=== PATIENT | female | born 1960 | race Caucasian/White ===

== ENCOUNTER 2022-08-22 14:46 | Emergency (ER) | payer MEDICAID, MEDICARE, OTHER, SELFPAY ==
[2022-08-22] MEDS ORDERED: Acetaminophen 500 MG Tab PO ONE (17:09)
[2022-08-22] MEDS ORDERED: busPIRone 15 MG Tab PO ONE (17:10)
[2022-08-22] MEDS ORDERED: traMADol 50 MG Tab PO ONE (17:10)
[2022-08-22] MEDS ORDERED: hydrOXYzine HCl 25 MG Tab PO ONE (17:10)
[2022-08-22] MEDS ORDERED: Gabapentin 300 MG Cap PO ONE (17:12)
== END 2022-08-22 17:40 | disposition home or self-care (01) ==
LOC: DL.ED 14:46 → MERGE 14:46 → DL.ED 17:40
DX: F41.9 Anxiety disorder, unspecified (principal); G89.4 Chronic pain syndrome; K21.9 Gastro-esophageal reflux disease without esophagitis; J44.9 Chronic obstructive pulmonary disease, unspecified; Z88.8 Allergy status to other drugs, medicaments and biological substances; Z88.2 Allergy status to sulfonamides; Z88.5 Allergy status to narcotic agent; Z79.899 Other long term (current) drug therapy; Z79.01 Long term (current) use of anticoagulants
CPT/HCPCS: 99283

== ENCOUNTER 2022-08-28 19:00 | Emergency (ER) | payer MEDICARE ==
[2022-08-28] MEDS ORDERED: traMADol 50 MG Tab PO ONE (19:23)
[2022-08-28] MEDS ORDERED: hydrOXYzine HCl 25 MG Tab PO ONE (19:23)
[2022-08-28] MEDS ORDERED: busPIRone 15 MG Tab PO ONE (19:23)
[2022-08-28] MEDS ORDERED: hydrOXYzine HCl 25 MG Tab ONE (19:33)
== END 2022-08-28 19:53 | disposition left against medical advice (07) ==
LOC: DL.ED 19:00
DX: F41.9 Anxiety disorder, unspecified (principal); G89.29 Other chronic pain; M54.50 Low back pain, unspecified; J44.9 Chronic obstructive pulmonary disease, unspecified; Z72.0 Tobacco use; Z86.711 Personal history of pulmonary embolism; Z88.2 Allergy status to sulfonamides; Z88.8 Allergy status to other drugs, medicaments and biological substances; Z88.1 Allergy status to other antibiotic agents; Z88.5 Allergy status to narcotic agent; Z79.899 Other long term (current) drug therapy; Z79.01 Long term (current) use of anticoagulants
CPT/HCPCS: 99283; A9270

== ENCOUNTER 2022-09-29 07:31 | Emergency (ER) | payer MEDICARE ==
[2022-09-29 07:45] VITALS: BP 118/86; PULSE 82
== END 2022-09-29 07:57 | disposition home or self-care (01) ==
LOC: DL.ED 07:31
DX: H10.021 Other mucopurulent conjunctivitis, right eye (principal); J44.9 Chronic obstructive pulmonary disease, unspecified; Z86.711 Personal history of pulmonary embolism; Z79.899 Other long term (current) drug therapy; Z88.8 Allergy status to other drugs, medicaments and biological substances; Z88.1 Allergy status to other antibiotic agents; Z88.5 Allergy status to narcotic agent; Z88.2 Allergy status to sulfonamides
CPT/HCPCS: 99282

== ENCOUNTER 2022-10-10 17:45 | Emergency (ER) | payer MEDICARE ==
[2022-10-10 17:58] VITALS: BP 125/61; PULSE 82
[2022-10-10 18:49] LABS: ANION GAP 11.7 mEq/L (7-13); CHLORIDE,CL 106 mmol/L (98-107); SODIUM,NA 146 mmol/L (136-145)
[2022-10-10 18:50] LABS: ESTIMATED GFR 83 mL/min (>=60)
[2022-10-10] MEDS ORDERED: traMADol 50 MG Tab PO ONE (19:29)
[2022-10-10 19:46] LABS: AMPHETAMINES,URINE NEGATIVE (NEGATIVE); BARBITURATES,URINE NEGATIVE (NEGATIVE); BENZODIAZEPINE,URINE NEGATIVE (NEGATIVE); MDMA (ECSTASY), URINE NEGATIVE (NEGATIVE); METHADONE,URINE NEGATIVE (NEGATIVE); METHAMPHETAMINES,URINE NEGATIVE (NEGATIVE); OPIATES,URINE NEGATIVE (NEGATIVE); OXYCODONE,URINE NEGATIVE (NEGATIVE); PHENCYCLIDINE,URINE NEGATIVE (NEGATIVE); TCA,URINE NEGATIVE (NEGATIVE)
== END 2022-10-10 20:08 | disposition other institution (70) ==
LOC: DL.ED 17:45
DX: G44.319 Acute post-traumatic headache, not intractable (principal); M11.262 Other chondrocalcinosis, left knee; I51.7 Cardiomegaly; J44.9 Chronic obstructive pulmonary disease, unspecified; Z86.711 Personal history of pulmonary embolism; Z79.01 Long term (current) use of anticoagulants; Z79.51 Long term (current) use of inhaled steroids; Z88.2 Allergy status to sulfonamides; Z88.5 Allergy status to narcotic agent; Z88.8 Allergy status to other drugs, medicaments and biological substances; Z88.6 Allergy status to analgesic agent
CPT/HCPCS: 36415; 70450; 71045; 72125; 72170; 73562-LT; 80053; 80305-QW; 80307; 81003; 85025; 99284; 99285; A9270-GY

== ENCOUNTER 2022-10-12 14:55 | Emergency (ER) | payer MEDICARE ==
[2022-10-12 15:22] VITALS: BP 137/82; PULSE 92
[2022-10-12] MEDS ORDERED: Sodium Chloride 0.9% 10 ML Syringe FLUSH PRN (15:26)
[2022-10-12] MEDS ORDERED: diphenhydrAMINE 50 MG/ML SDV IVPUSH ONE (16:12)
[2022-10-12 16:14] LABS: ANION GAP 11.6 mEq/L (7-13)
[2022-10-12 16:52] LABS: CORONAVIRUS COVID-19 NAA NEGATIVE (NEGATIVE); RESPIRATORY SYNCYTIAL VIR NAA NEGATIVE (NEGATIVE)
== END 2022-10-12 16:46 | disposition home or self-care (01) ==
LOC: DL.ED 14:55
DX: R07.9 Chest pain, unspecified (principal); J44.9 Chronic obstructive pulmonary disease, unspecified; Z95.1 Presence of aortocoronary bypass graft; Z88.5 Allergy status to narcotic agent; Z88.8 Allergy status to other drugs, medicaments and biological substances; Z88.2 Allergy status to sulfonamides; Z79.899 Other long term (current) drug therapy; Z79.01 Long term (current) use of anticoagulants; Z20.822 Contact with and (suspected) exposure to COVID-19
CPT/HCPCS: 0241U; 36415; 71045; 80053; 81001; 83605; 83735; 84484; 85025; 86140; 87040; 87086; 87088; 87186; 93005; 93010; 96374; 99284; 99285; J1200; J3490

== ENCOUNTER 2022-10-14 11:09 | Emergency (ER) | payer MEDICARE ==
[2022-10-14] MEDS ORDERED: Ketorolac 30 MG/ML SDV IM ONE (11:32)
[2022-10-14 11:55] VITALS: BP 108/57; PULSE 96
== END 2022-10-14 11:42 | disposition home or self-care (01) ==
LOC: DL.ED 11:09
DX: G44.319 Acute post-traumatic headache, not intractable (principal); N30.00 Acute cystitis without hematuria; J44.9 Chronic obstructive pulmonary disease, unspecified; F17.210 Nicotine dependence, cigarettes, uncomplicated; Z88.2 Allergy status to sulfonamides; Z88.5 Allergy status to narcotic agent; Z88.8 Allergy status to other drugs, medicaments and biological substances; Z79.01 Long term (current) use of anticoagulants; Z79.899 Other long term (current) drug therapy; Z79.51 Long term (current) use of inhaled steroids; Z86.718 Personal history of other venous thrombosis and embolism; Z86.711 Personal history of pulmonary embolism
CPT/HCPCS: 96372; 99283; J1885

== ENCOUNTER 2022-10-21 15:14 | Emergency (ER) | payer MEDICARE ==
[2022-10-21] MEDS ORDERED: Sodium Chloride 0.9% 10 ML Syringe FLUSH PRN (15:21)
[2022-10-21 15:38] VITALS: BP 143/92; PULSE 84
[2022-10-21] MEDS ORDERED: diphenhydrAMINE 50 MG/ML SDV IVPUSH ONE (16:10)
[2022-10-21 16:13] LABS: ANION GAP 10.2 mEq/L (7-13)
== END 2022-10-21 16:35 | disposition home or self-care (01) ==
LOC: DL.ED 15:14
DX: R07.9 Chest pain, unspecified (principal); J44.9 Chronic obstructive pulmonary disease, unspecified; F17.210 Nicotine dependence, cigarettes, uncomplicated; Z88.2 Allergy status to sulfonamides; Z88.5 Allergy status to narcotic agent; Z88.8 Allergy status to other drugs, medicaments and biological substances; Z86.718 Personal history of other venous thrombosis and embolism; Z86.711 Personal history of pulmonary embolism; Z79.01 Long term (current) use of anticoagulants; Z79.51 Long term (current) use of inhaled steroids; Z79.899 Other long term (current) drug therapy; Z95.1 Presence of aortocoronary bypass graft
CPT/HCPCS: 36415; 80053; 82150; 83690; 83735; 84484; 85025; 93005; 93010; 96374; 99284; 99285-25; J1200; J3490

== ENCOUNTER 2022-11-28 06:24 | Emergency (ER) | payer MEDICARE, MEDICAID ==
[2022-11-28 06:48] VITALS: BP 141/82; PULSE 72
[2022-11-28] MEDS ORDERED: Take Home: traMADol 50 MG, 4 Tab Pack PO ONE (07:11)
== END 2022-11-28 07:23 | disposition home or self-care (01) ==
LOC: DL.ED 06:24
DX: K60.2 Anal fissure, unspecified (principal); M79.7 Fibromyalgia; J44.9 Chronic obstructive pulmonary disease, unspecified; Z72.0 Tobacco use; Z88.5 Allergy status to narcotic agent; Z88.8 Allergy status to other drugs, medicaments and biological substances; Z88.2 Allergy status to sulfonamides; Z79.01 Long term (current) use of anticoagulants; Z79.899 Other long term (current) drug therapy
CPT/HCPCS: 99283; 99284; A9270

== ENCOUNTER 2022-12-06 07:23 | Emergency (ER) | payer MEDICARE, MEDICAID ==
[2022-12-06 08:01] VITALS: BP 105/82; PULSE 66
[2022-12-06] MEDS ORDERED: traMADol 50 MG Tab PO ONE (08:09)
[2022-12-06] MEDS ORDERED: Ketorolac 30 MG/ML SDV IM ONE (08:09)
[2022-12-06] MEDS ORDERED: Promethazine 25 MG Tab PO ONE (08:12)
== END 2022-12-06 08:36 | disposition home or self-care (01) ==
LOC: DL.ED 07:23
DX: G89.29 Other chronic pain (principal)
CPT/HCPCS: 96372; 99282; 99283; A9270-GY; J1885

== ENCOUNTER 2022-12-07 07:33 | Emergency (ER) | payer MEDICARE, MEDICAID ==
[2022-12-07] MEDS ORDERED: Lidocaine 5% Oint 35.44 GM Tube TOP ONE (07:40)
[2022-12-07] MEDS ORDERED: Ketorolac 30 MG/ML SDV IVPUSH ONE (07:41)
[2022-12-07] MEDS ORDERED: traMADol 50 MG Tab PO ONE (07:41)
[2022-12-07 07:43] VITALS: BP 113/50; PULSE 78
== END 2022-12-07 07:59 | disposition home or self-care (01) ==
LOC: DL.ED 07:33
DX: K60.2 Anal fissure, unspecified (principal); G89.4 Chronic pain syndrome; J44.9 Chronic obstructive pulmonary disease, unspecified; Z88.8 Allergy status to other drugs, medicaments and biological substances; Z88.5 Allergy status to narcotic agent; Z88.2 Allergy status to sulfonamides; Z79.01 Long term (current) use of anticoagulants; Z95.1 Presence of aortocoronary bypass graft
CPT/HCPCS: 96374; 99283; A9270; J1885

== ENCOUNTER 2022-12-08 15:44 | Emergency (ER) | payer MEDICARE ==
[2022-12-08 15:52] VITALS: BP 115/79; PULSE 78
[2022-12-08] MEDS ORDERED: Ketorolac 30 MG/ML SDV IM ONE (15:55)
== END 2022-12-08 16:09 | disposition home or self-care (01) ==
LOC: DL.ED 15:44
DX: G62.9 Polyneuropathy, unspecified (principal); G89.4 Chronic pain syndrome; J44.9 Chronic obstructive pulmonary disease, unspecified; Z88.2 Allergy status to sulfonamides; Z88.5 Allergy status to narcotic agent; Z88.8 Allergy status to other drugs, medicaments and biological substances
CPT/HCPCS: 96372; 99283; J1885

== ENCOUNTER 2022-12-17 01:22 | Emergency (ER) | payer MEDICARE ==
[2022-12-17] MEDS ORDERED: Ketorolac 30 MG/ML SDV IM ONE (02:52)
== END 2022-12-17 03:12 | disposition left against medical advice (07) ==
LOC: DL.ED 01:22
DX: G89.29 Other chronic pain (principal); R51.9 Headache, unspecified; J44.9 Chronic obstructive pulmonary disease, unspecified; F17.210 Nicotine dependence, cigarettes, uncomplicated; Z88.1 Allergy status to other antibiotic agents; Z88.5 Allergy status to narcotic agent; Z88.2 Allergy status to sulfonamides; Z88.8 Allergy status to other drugs, medicaments and biological substances; Z79.01 Long term (current) use of anticoagulants; Z79.899 Other long term (current) drug therapy
CPT/HCPCS: 99282; 99284

== ENCOUNTER 2023-04-05 12:22 | Inpatient (IN) | payer MEDICARE, MEDICAID ==
[2023-04-05] MEDS ORDERED: Albuterol/Ipratropium 3.0-0.5 MG/3 ML Neb Soln NEB ONE (12:25)
[2023-04-05] MEDS ORDERED: Albuterol 0.083% 2.5 MG/3 ML Neb Soln NEB ONE (12:25)
[2023-04-05] MEDS ORDERED: Sodium Chloride 0.9% 1,000 ML IV ONE (12:26)
[2023-04-05] MEDS ORDERED: Magnesium Sulfate/Water 6 GM in Premix Bag 1 BAG IV ONE (12:26)
[2023-04-05] MEDS ORDERED: Azithromycin 500 MG in Sodium Chloride 0.9% 250 ML IV ONE (12:27)
[2023-04-05] MEDS ORDERED: cefTRIAXone 2 GM Vial IVPUSH ONE (12:27)
[2023-04-05 12:38] LABS: BASOPHILS PERCENT AUTO 0.1 % (0.0-1.0); EOSINOPHILS PERCENT AUTO 0.4 % (1.0-3.0); HEMATOCRIT 39.8 % (37.0-47.0); LYMPHOCYTES PERCENT AUTO 5.9 % (20.5-50.1); MEAN CORPUSCULAR HEMOGLOBIN 25.2 pg (27.0-34.0); MEAN CORPUSCULAR HGB CONC 30.2 g/dL (33.0-35.0); MEAN CORPUSCULAR VOLUME 83.4 fL (80-100); MONOCYTES PERCENT AUTO 4.4 % (2-8); NEUTROPHILS PERCENT AUTO 89.2 % (42.2-75.2); PLATELET COUNT,PLT 334 10^3/uL (150-450); RED BLOOD CELL COUNT 4.77 10^6/uL (4.2-5.4); WHITE BLOOD CELL COUNT,WBC 16.1 10^3/uL (5.0-10.0)
[2023-04-05] MEDS: Sodium Chloride 0.9% 10 ML Syringe FLUSH PRN (12:43)
[2023-04-05 12:58] LABS: ALANINE AMINOTRANSFERASE,ALT 24 U/L (14-59); ALBUMIN 3.2 g/dL (3.4-5.0); ALKALINE PHOSPHATASE 101 U/L (46-116); ANION GAP 12.4 mEq/L (7-13); ASPARTATE AMNIOTRANSFERASE,AST 16 U/L (15-37); B-TYPE NATRIURETIC PEPTIDE,BNP 270 pg/ml (0-100); BILIRUBIN TOTAL 0.3 mg/dL (0.2-1.0); BLOOD UREA NITROGEN,BUN 19 mg/dL (7-18); BUN/CREATININE RATIO 19.4 (No establ ref range); CALCIUM 8.6 mg/dL (8.5-10.1); CARBON DIOXIDE,CO2 30 mmol/L (21-32); CHLORIDE,CL 103 mmol/L (98-107); CREATININE 0.98 mg/dL (0.55-1.02); GLUCOSE RANDOM 132 mg/dL (70-99); LACTIC ACID 1.5 mmol/L (0.4-2.0); MAGNESIUM 2.1 mg/dL (1.8-2.4); POTASSIUM,K 4.4 mmol/L (3.5-5.1); PROTEIN TOTAL,TP 6.9 g/dL (6.4-8.2); SODIUM,NA 141 mmol/L (136-145)
[2023-04-05 13:02] LABS: A/G RATIO 0.86; ESTIMATED GFR 66 mL/min (>=60)
[2023-04-05] MEDS ORDERED: Albuterol 0.083% 2.5 MG/3 ML Neb Soln NEB PRN (14:43)
[2023-04-05] MEDS ORDERED: Docusate Sodium 100 MG Cap PO PRN (14:43)
[2023-04-05] MEDS ORDERED: Sennosides/Docusate Sodium 50-8.6 MG Tab PO PRN (14:43)
[2023-04-05] MEDS ORDERED: Acetaminophen/HYDROcodone 325-5 MG Tab PO PRN (14:43)
[2023-04-05] MEDS ORDERED: Bisacodyl 5 MG Tab PO PRN (14:43)
[2023-04-05] MEDS ORDERED: Albuterol/Ipratropium 3.0-0.5 MG/3 ML Neb Soln NEB PRN (14:43)
[2023-04-05] MEDS ORDERED: Polyethylene Glycol 3350 Powder 17 GM Packet PO PRN (14:43)
[2023-04-05] MEDS ORDERED: Ondansetron 4 MG/2 ML SDV IVPUSH PRN (14:43)
[2023-04-05] MEDS ORDERED: Glucagon,Human Recombinant 1 MG Vial IM PRN (15:13)
[2023-04-05] MEDS ORDERED: 50% Dextrose in Water 50 ML Syringe IVPUSH PRN (15:13)
[2023-04-05] MEDS: guaiFENesin/Dextromethorphan 100-10 MG/5 ML Soln 5 ML Cup PO PRN ×2 (16:32→20:58)
[2023-04-05] MEDS: Acetaminophen 325 MG Tab PO PRN (16:32)
[2023-04-05] MEDS: methylPREDNISolone Sodium Succinate 40 MG/1 ML SDV IVPUSH SCH ×2 (16:32→20:56)
[2023-04-05] MEDS: Nicotine 21 MG/24 Hr Patch TRDERM SCH (16:33)
[2023-04-05] MEDS: Insulin Lispro 100 Units/ML 3 ML Vial SUBCUT SCH ×2 (17:04→21:06)
[2023-04-05] MEDS: Budesonide 0.5 MG/2 ML Neb Susp NEB SCH (17:55)
[2023-04-05 17:58] LABS: APPEARANCE,URINE SLIGHTLY CLOUDY (CLEAR); BILIRUBIN,URINE NEGATIVE (NEGATIVE); COLOR,URINE YELLOW (YELLOW); GLUCOSE,URINE NEGATIVE (NEGATIVE); KETONES,URINE NEGATIVE (NEGATIVE); LEUKOCYTE ESTERASE,URINE TRACE (NEGATIVE); NITRITE,URINE NEGATIVE (NEGATIVE); OCCULT BLOOD,URINE NEGATIVE (NEGATIVE); PH,URINE 5.5 (5.0-9.0); PROTEIN,URINE TRACE (NEGATIVE); UROBILINOGEN,URINE 0.2 mg/dL (0.2-1.0)
[2023-04-05 18:04] LABS: AMPHETAMINES,URINE NEGATIVE (NEGATIVE); BARBITURATES,URINE NEGATIVE (NEGATIVE); BENZODIAZEPINE,URINE NEGATIVE (NEGATIVE); MDMA (ECSTASY), URINE NEGATIVE (NEGATIVE); METHADONE,URINE NEGATIVE (NEGATIVE); METHAMPHETAMINES,URINE NEGATIVE (NEGATIVE); OPIATES,URINE NEGATIVE (NEGATIVE); OXYCODONE,URINE NEGATIVE (NEGATIVE); PHENCYCLIDINE,URINE NEGATIVE (NEGATIVE); TCA,URINE POSITIVE (NEGATIVE)
[2023-04-05 18:08] LABS: AMORPHOUS SEDIMENT,URINE MANY /HPF (NOT SEEN); BACTERIA,URINE MODERATE /HPF (0-FEW/HPF); EPITHELIAL CELLS,URINE MANY /HPF (NOT SEEN); RBC,URINE 0-5 /HPF (0-5)
[2023-04-05] MEDS ORDERED: Benzocaine/Cetylpyridinium/Menthol Lozenge MUCMEM PRN (20:39)
[2023-04-05] MEDS: OLANZapine 5 MG Tab PO SCH (20:57)
[2023-04-05] MEDS: traZODone 50 MG Tab PO SCH (20:58)
[2023-04-05] MEDS ORDERED: Apixaban 5 MG Tab PO SCH (21:00)
[2023-04-05] MEDS: Tiotropium Bromide 4 GM Inhalation Spray (2.5mcg/1 dose; 10 doses) INH SCH (21:03)
[2023-04-06] MEDS ORDERED: Hydrocortisone 2.5% Crm 30 GM Tube TOP PRN (00:54)
[2023-04-06] MEDS ORDERED: Lidocaine 5% Oint 35.44 GM Tube TOP PRN (00:54)
[2023-04-06] MEDS ORDERED: Hydrocortisone 1% Oint 28 GM Tube TOP PRN (00:54)
[2023-04-06] MEDS: Cholecalciferol (Vitamin D3) 25 MCG Tab PO SCH ×2 (01:23→21:16)
[2023-04-06] MEDS: Acetaminophen 325 MG Tab PO PRN ×2 (01:24→15:43)
[2023-04-06] MEDS: cloNIDine 0.1 MG Tab PO SCH ×3 (01:24→21:18)
[2023-04-06] MEDS: hydrOXYzine HCl 25 MG Tab PO PRN (01:24)
[2023-04-06] MEDS: methylPREDNISolone Sodium Succinate 40 MG/1 ML SDV IVPUSH SCH ×4 (02:45→21:15)
[2023-04-06] MEDS: Meclizine 12.5 MG Tab PO SCH ×3 (05:46→17:19)
[2023-04-06] MEDS: Albuterol/Ipratropium 3.0-0.5 MG/3 ML Neb Soln INH SCH ×3 (06:09→17:57)
[2023-04-06] MEDS: Budesonide 0.5 MG/2 ML Neb Susp NEB SCH ×2 (06:09→17:58)
[2023-04-06 06:39] LABS: BASOPHILS PERCENT AUTO 0.1 % (0.0-1.0); HEMATOCRIT 36.4 % (37.0-47.0); HEMOGLOBIN 10.9 g/dL (12.0-16.0); LYMPHOCYTES PERCENT AUTO 3.9 % (20.5-50.1); MEAN CORPUSCULAR HEMOGLOBIN 25.3 pg (27.0-34.0); MEAN CORPUSCULAR HGB CONC 29.9 g/dL (33.0-35.0); MEAN CORPUSCULAR VOLUME 84.5 fL (80-100); MONOCYTES PERCENT AUTO 2.9 % (2-8); NEUTROPHILS PERCENT AUTO 93.1 % (42.2-75.2); PLATELET COUNT,PLT 242 10^3/uL (150-450); RED BLOOD CELL COUNT 4.31 10^6/uL (4.2-5.4); WHITE BLOOD CELL COUNT,WBC 10.2 10^3/uL (5.0-10.0)
[2023-04-06 06:52] LABS: ANION GAP 10.5 mEq/L (7-13); CALCIUM 8.1 mg/dL (8.5-10.1); CREATININE 0.75 mg/dL (0.55-1.02); EST CRCL DRUG DOSING (CG) 68.88 mL/min; POTASSIUM,K 4.5 mmol/L (3.5-5.1)
[2023-04-06] MEDS: Insulin Lispro 100 Units/ML 3 ML Vial SUBCUT SCH ×4 (08:11→21:14)
[2023-04-06] MEDS: Omeprazole 20 MG Cap.CR PO SCH (08:33)
[2023-04-06] MEDS: OLANZapine 5 MG Tab PO SCH ×2 (08:34→21:17)
[2023-04-06] MEDS: Cyclobenzaprine 10 MG Tab PO SCH ×3 (08:34→21:17)
[2023-04-06] MEDS: Dicyclomine 10 MG Cap PO SCH ×3 (08:34→21:16)
[2023-04-06] MEDS: busPIRone 15 MG Tab PO SCH ×3 (08:35→21:17)
[2023-04-06] MEDS: Azithromycin 250 MG Tab PO SCH (08:37)
[2023-04-06] MEDS: DULoxetine 30 MG Cap PO SCH ×2 (08:37→21:16)
[2023-04-06] MEDS: Ferrous Sulfate 325 MG Tab PO SCH (08:37)
[2023-04-06] MEDS: Oxybutynin 5 MG Tab.ER PO SCH (08:37)
[2023-04-06] MEDS: Apixaban 5 MG Tab PO SCH ×2 (08:37→21:16)
[2023-04-06] MEDS ORDERED: Docusate Sodium 100 MG Cap PO SCH (09:00)
[2023-04-06] MEDS ORDERED: OLANZapine 5 MG Tab PO SCH (09:00)
[2023-04-06] MEDS: traMADol 50 MG Tab PO SCH ×2 (09:56→21:17)
[2023-04-06] MEDS: Nicotine 21 MG/24 Hr Patch TRDERM SCH (11:09)
[2023-04-06] MEDS: Nystatin Susp 100,000 Unit/ML 5 ML UD Cup PO SCH ×3 (12:31→21:15)
[2023-04-06] MEDS: cefTRIAXone 1 GM Vial IVPUSH SCH (12:36)
[2023-04-06] MEDS: Tiotropium Bromide 4 GM Inhalation Spray (2.5mcg/1 dose; 10 doses) INH SCH ×2 (13:27→21:20)
[2023-04-06] MEDS: Fluticasone NASAL Spray 16 GM Bottle NASBOTH SCH ×2 (13:27→21:13)
[2023-04-06] MEDS ORDERED: TRAZODONE HCL 100 MG PO SCH (21:00)
[2023-04-06] MEDS: traZODone 50 MG Tab PO SCH (21:15)
[2023-04-07] MEDS: Meclizine 12.5 MG Tab PO SCH ×6 (02:54→23:45)
[2023-04-07] MEDS: Albuterol/Ipratropium 3.0-0.5 MG/3 ML Neb Soln INH SCH ×3 (02:54→12:21)
[2023-04-07] MEDS: Acetaminophen 325 MG Tab PO PRN ×2 (03:41→12:23)
[2023-04-07] MEDS: methylPREDNISolone Sodium Succinate 40 MG/1 ML SDV IVPUSH SCH ×4 (03:42→20:27)
[2023-04-07] MEDS: Budesonide 0.5 MG/2 ML Neb Susp NEB SCH ×3 (05:46→17:35)
[2023-04-07] MEDS: Tiotropium Bromide 4 GM Inhalation Spray (2.5mcg/1 dose; 10 doses) INH SCH ×3 (05:48→20:48)
[2023-04-07] MEDS: Apixaban 5 MG Tab PO SCH ×2 (09:26→20:21)
[2023-04-07] MEDS: Dicyclomine 10 MG Cap PO SCH ×3 (09:26→20:52)
[2023-04-07] MEDS: busPIRone 15 MG Tab PO SCH ×3 (09:26→20:22)
[2023-04-07] MEDS: Oxybutynin 5 MG Tab.ER PO SCH (09:27)
[2023-04-07] MEDS: traMADol 50 MG Tab PO SCH ×2 (09:29→20:24)
[2023-04-07] MEDS: Cyclobenzaprine 10 MG Tab PO SCH ×3 (09:31→20:21)
[2023-04-07] MEDS: cloNIDine 0.1 MG Tab PO SCH ×2 (09:31→20:27)
[2023-04-07] MEDS: Nystatin Susp 100,000 Unit/ML 5 ML UD Cup PO SCH ×4 (09:33→20:19)
[2023-04-07] MEDS: DULoxetine 30 MG Cap PO SCH ×2 (09:34→20:21)
[2023-04-07] MEDS: OLANZapine 5 MG Tab PO SCH ×2 (09:34→20:25)
[2023-04-07] MEDS: Omeprazole 20 MG Cap.CR PO SCH (09:34)
[2023-04-07] MEDS: Ferrous Sulfate 325 MG Tab PO SCH (09:34)
[2023-04-07] MEDS: Nicotine 21 MG/24 Hr Patch TRDERM SCH (09:34)
[2023-04-07] MEDS: Insulin Lispro 100 Units/ML 3 ML Vial SUBCUT SCH ×4 (09:36→20:46)
[2023-04-07] MEDS: Fluticasone NASAL Spray 16 GM Bottle NASBOTH SCH ×2 (09:38→20:47)
[2023-04-07] MEDS: Azithromycin 250 MG Tab PO SCH (10:54)
[2023-04-07] MEDS ORDERED: Furosemide 40 MG Tab PO ONE (12:16)
[2023-04-07] MEDS: cefTRIAXone 1 GM Vial IVPUSH SCH (12:22)
[2023-04-07] MEDS: Albuterol/Ipratropium 3.0-0.5 MG/3 ML Neb Soln NEB SCH ×4 (13:57→23:39)
[2023-04-07] MEDS: guaiFENesin/Dextromethorphan 100-10 MG/5 ML Soln 5 ML Cup PO PRN (20:19)
[2023-04-07] MEDS: traZODone 50 MG Tab PO SCH (20:20)
[2023-04-07] MEDS: Cholecalciferol (Vitamin D3) 25 MCG Tab PO SCH (20:20)
[2023-04-08] MEDS: Acetaminophen 325 MG Tab PO PRN ×3 (00:51→17:13)
[2023-04-08] MEDS: Albuterol/Ipratropium 3.0-0.5 MG/3 ML Neb Soln NEB SCH ×7 (02:25→23:08)
[2023-04-08] MEDS: methylPREDNISolone Sodium Succinate 40 MG/1 ML SDV IVPUSH SCH ×4 (03:04→20:51)
[2023-04-08] MEDS: hydrOXYzine HCl 25 MG Tab PO PRN (03:24)
[2023-04-08] MEDS: Meclizine 12.5 MG Tab PO SCH ×4 (05:27→23:37)
[2023-04-08] MEDS: Budesonide 0.5 MG/2 ML Neb Susp NEB SCH ×3 (05:32→17:43)
[2023-04-08] MEDS: Tiotropium Bromide 4 GM Inhalation Spray (2.5mcg/1 dose; 10 doses) INH SCH ×5 (05:36→23:37)
[2023-04-08] MEDS: traMADol 50 MG Tab PO SCH ×3 (08:32→23:07)
[2023-04-08] MEDS: OLANZapine 5 MG Tab PO SCH ×2 (08:32→20:49)
[2023-04-08] MEDS: DULoxetine 30 MG Cap PO SCH ×2 (08:32→20:48)
[2023-04-08] MEDS: Oxybutynin 5 MG Tab.ER PO SCH (08:32)
[2023-04-08] MEDS: Azithromycin 250 MG Tab PO SCH (08:32)
[2023-04-08] MEDS: busPIRone 15 MG Tab PO SCH ×3 (08:32→20:47)
[2023-04-08] MEDS: Cyclobenzaprine 10 MG Tab PO SCH ×3 (08:33→20:47)
[2023-04-08] MEDS: Ferrous Sulfate 325 MG Tab PO SCH (08:33)
[2023-04-08] MEDS: Omeprazole 20 MG Cap.CR PO SCH (08:33)
[2023-04-08] MEDS: Dicyclomine 10 MG Cap PO SCH ×3 (08:34→20:47)
[2023-04-08] MEDS: Apixaban 5 MG Tab PO SCH ×2 (08:34→20:50)
[2023-04-08] MEDS: cloNIDine 0.1 MG Tab PO SCH ×2 (08:39→20:48)
[2023-04-08] MEDS: Nystatin Susp 100,000 Unit/ML 5 ML UD Cup PO SCH ×4 (08:41→20:53)
[2023-04-08] MEDS: Nicotine 21 MG/24 Hr Patch TRDERM SCH (08:43)
[2023-04-08] MEDS: Insulin Lispro 100 Units/ML 3 ML Vial SUBCUT SCH ×4 (08:50→20:50)
[2023-04-08] MEDS: Sodium Chloride 0.9% 10 ML Syringe FLUSH PRN ×2 (08:51→12:15)
[2023-04-08] MEDS: Fluticasone NASAL Spray 16 GM Bottle NASBOTH SCH ×2 (09:06→20:51)
[2023-04-08] MEDS: cefTRIAXone 1 GM Vial IVPUSH SCH (12:15)
[2023-04-08] MEDS: Cholecalciferol (Vitamin D3) 25 MCG Tab PO SCH (20:47)
[2023-04-08] MEDS: traZODone 50 MG Tab PO SCH (20:49)
[2023-04-09] MEDS: Acetaminophen 325 MG Tab PO PRN (02:45)
[2023-04-09] MEDS: Albuterol/Ipratropium 3.0-0.5 MG/3 ML Neb Soln NEB SCH ×7 (02:47→22:04)
[2023-04-09] MEDS: methylPREDNISolone Sodium Succinate 40 MG/1 ML SDV IVPUSH SCH ×4 (02:47→20:45)
[2023-04-09] MEDS: Meclizine 12.5 MG Tab PO SCH ×3 (05:32→17:31)
[2023-04-09] MEDS: Tiotropium Bromide 4 GM Inhalation Spray (2.5mcg/1 dose; 10 doses) INH SCH ×3 (05:44→21:10)
[2023-04-09] MEDS: Budesonide 0.5 MG/2 ML Neb Susp NEB SCH ×3 (05:44→17:45)
[2023-04-09] MEDS: Insulin Lispro 100 Units/ML 3 ML Vial SUBCUT SCH ×4 (08:39→21:10)
[2023-04-09] MEDS: cloNIDine 0.1 MG Tab PO SCH ×2 (09:05→20:42)
[2023-04-09] MEDS: DULoxetine 30 MG Cap PO SCH ×2 (09:07→20:37)
[2023-04-09] MEDS: OLANZapine 5 MG Tab PO SCH ×2 (09:08→20:41)
[2023-04-09] MEDS: Cyclobenzaprine 10 MG Tab PO SCH ×3 (09:08→20:44)
[2023-04-09] MEDS: Omeprazole 20 MG Cap.CR PO SCH (09:08)
[2023-04-09] MEDS: Apixaban 5 MG Tab PO SCH ×2 (09:08→20:38)
[2023-04-09] MEDS: Dicyclomine 10 MG Cap PO SCH ×3 (09:08→20:42)
[2023-04-09] MEDS: Azithromycin 250 MG Tab PO SCH (09:08)
[2023-04-09] MEDS: Ferrous Sulfate 325 MG Tab PO SCH (09:09)
[2023-04-09] MEDS: Nicotine 21 MG/24 Hr Patch TRDERM SCH (09:09)
[2023-04-09] MEDS: Oxybutynin 5 MG Tab.ER PO SCH (09:09)
[2023-04-09] MEDS: busPIRone 15 MG Tab PO SCH ×3 (09:09→20:38)
[2023-04-09] MEDS: traMADol 50 MG Tab PO SCH ×4 (09:09→20:39)
[2023-04-09] MEDS: Nystatin Susp 100,000 Unit/ML 5 ML UD Cup PO SCH ×4 (09:10→20:50)
[2023-04-09] MEDS: Fluticasone NASAL Spray 16 GM Bottle NASBOTH SCH ×2 (09:10→20:50)
[2023-04-09] MEDS: cefTRIAXone 1 GM Vial IVPUSH SCH (11:36)
[2023-04-09] MEDS: Cholecalciferol (Vitamin D3) 25 MCG Tab PO SCH (20:40)
[2023-04-09] MEDS: traZODone 50 MG Tab PO SCH (20:43)
[2023-04-10] MEDS: Meclizine 12.5 MG Tab PO SCH ×2 (00:05→05:57)
[2023-04-10] MEDS: Albuterol/Ipratropium 3.0-0.5 MG/3 ML Neb Soln NEB SCH ×7 (01:00→23:35)
[2023-04-10] MEDS: methylPREDNISolone Sodium Succinate 40 MG/1 ML SDV IVPUSH SCH ×4 (02:24→20:23)
[2023-04-10] MEDS: Acetaminophen 325 MG Tab PO PRN ×2 (03:15→23:33)
[2023-04-10] MEDS: Budesonide 0.5 MG/2 ML Neb Susp NEB SCH ×3 (05:36→17:07)
[2023-04-10] MEDS: Tiotropium Bromide 4 GM Inhalation Spray (2.5mcg/1 dose; 10 doses) INH SCH ×3 (05:37→20:21)
[2023-04-10] MEDS: Insulin Lispro 100 Units/ML 3 ML Vial SUBCUT SCH ×4 (08:33→20:23)
[2023-04-10] MEDS: Nicotine 21 MG/24 Hr Patch TRDERM SCH (08:40)
[2023-04-10] MEDS: DULoxetine 30 MG Cap PO SCH ×2 (08:42→20:19)
[2023-04-10] MEDS: cloNIDine 0.1 MG Tab PO SCH ×2 (08:43→20:18)
[2023-04-10] MEDS: Cyclobenzaprine 10 MG Tab PO SCH ×3 (08:43→20:16)
[2023-04-10] MEDS: busPIRone 15 MG Tab PO SCH ×3 (08:44→20:19)
[2023-04-10] MEDS: Azithromycin 250 MG Tab PO SCH (08:44)
[2023-04-10] MEDS: OLANZapine 5 MG Tab PO SCH ×2 (08:44→20:16)
[2023-04-10] MEDS: Omeprazole 20 MG Cap.CR PO SCH (08:44)
[2023-04-10] MEDS: Apixaban 5 MG Tab PO SCH ×2 (08:44→20:18)
[2023-04-10] MEDS: Oxybutynin 5 MG Tab.ER PO SCH (08:44)
[2023-04-10] MEDS: traMADol 50 MG Tab PO SCH ×4 (08:45→20:17)
[2023-04-10] MEDS: Ferrous Sulfate 325 MG Tab PO SCH (08:45)
[2023-04-10] MEDS: Dicyclomine 10 MG Cap PO SCH ×3 (08:45→20:17)
[2023-04-10] MEDS: Nystatin Susp 100,000 Unit/ML 5 ML UD Cup PO SCH ×4 (08:46→20:22)
[2023-04-10] MEDS: Fluticasone NASAL Spray 16 GM Bottle NASBOTH SCH ×2 (08:47→20:20)
[2023-04-10] MEDS: Furosemide 20 MG Tab PO SCH ×2 (08:53→12:02)
[2023-04-10] MEDS ORDERED: Meclizine 12.5 MG Tab PO PRN (10:40)
[2023-04-10] MEDS: cefTRIAXone 1 GM Vial IVPUSH SCH (12:02)
[2023-04-10] MEDS ORDERED: Albuterol/Ipratropium 3.0-0.5 MG/3 ML Neb Soln NEB SCH (14:00)
[2023-04-10] MEDS ORDERED: Albuterol/Ipratropium 3.0-0.5 MG/3 ML Neb Soln NEB PRN (14:02)
[2023-04-10] MEDS: Cholecalciferol (Vitamin D3) 25 MCG Tab PO SCH (20:14)
[2023-04-10] MEDS: traZODone 50 MG Tab PO SCH (20:17)
[2023-04-11] MEDS: methylPREDNISolone Sodium Succinate 40 MG/1 ML SDV IVPUSH SCH ×4 (02:25→20:44)
[2023-04-11] MEDS: Acetaminophen 325 MG Tab PO PRN ×3 (04:17→18:05)
[2023-04-11] MEDS: Albuterol/Ipratropium 3.0-0.5 MG/3 ML Neb Soln NEB SCH ×3 (05:18→17:26)
[2023-04-11] MEDS: Budesonide 0.5 MG/2 ML Neb Susp NEB SCH ×2 (05:18→17:26)
[2023-04-11] MEDS: Tiotropium Bromide 4 GM Inhalation Spray (2.5mcg/1 dose; 10 doses) INH SCH ×3 (05:24→20:42)
[2023-04-11] MEDS: Insulin Lispro 100 Units/ML 3 ML Vial SUBCUT SCH ×4 (09:13→20:43)
[2023-04-11] MEDS: cloNIDine 0.1 MG Tab PO SCH ×2 (09:18→20:43)
[2023-04-11] MEDS: Nystatin Susp 100,000 Unit/ML 5 ML UD Cup PO SCH ×5 (09:19→20:44)
[2023-04-11] MEDS: Cyclobenzaprine 10 MG Tab PO SCH ×3 (09:20→20:36)
[2023-04-11] MEDS: Apixaban 5 MG Tab PO SCH ×2 (09:20→20:35)
[2023-04-11] MEDS: traMADol 50 MG Tab PO SCH ×4 (09:21→20:39)
[2023-04-11] MEDS: DULoxetine 30 MG Cap PO SCH ×2 (09:21→20:44)
[2023-04-11] MEDS: Omeprazole 20 MG Cap.CR PO SCH (09:21)
[2023-04-11] MEDS: busPIRone 15 MG Tab PO SCH ×3 (09:21→20:40)
[2023-04-11] MEDS: Furosemide 20 MG Tab PO SCH ×2 (09:22→09:26)
[2023-04-11] MEDS: Oxybutynin 5 MG Tab.ER PO SCH (09:22)
[2023-04-11] MEDS: Azithromycin 250 MG Tab PO SCH (09:23)
[2023-04-11] MEDS: Dicyclomine 10 MG Cap PO SCH ×3 (09:23→20:35)
[2023-04-11] MEDS: Ferrous Sulfate 325 MG Tab PO SCH (09:24)
[2023-04-11] MEDS: OLANZapine 5 MG Tab PO SCH ×2 (09:24→20:37)
[2023-04-11] MEDS: Nicotine 21 MG/24 Hr Patch TRDERM SCH (09:28)
[2023-04-11] MEDS: Fluticasone NASAL Spray 16 GM Bottle NASBOTH SCH ×2 (09:31→20:42)
[2023-04-11] MEDS: cefTRIAXone 1 GM Vial IVPUSH SCH (12:59)
[2023-04-11] MEDS: traZODone 50 MG Tab PO SCH (20:36)
[2023-04-11] MEDS: Cholecalciferol (Vitamin D3) 25 MCG Tab PO SCH (20:38)
[2023-04-11] MEDS: hydrOXYzine HCl 25 MG Tab PO PRN (20:39)
[2023-04-12] MEDS: methylPREDNISolone Sodium Succinate 40 MG/1 ML SDV IVPUSH SCH ×2 (02:00→08:16)
[2023-04-12] MEDS: Acetaminophen 325 MG Tab PO PRN ×2 (05:08)
[2023-04-12] MEDS: Albuterol/Ipratropium 3.0-0.5 MG/3 ML Neb Soln NEB SCH ×2 (06:01)
[2023-04-12] MEDS: Budesonide 0.5 MG/2 ML Neb Susp NEB SCH (06:01)
[2023-04-12] MEDS: Dicyclomine 10 MG Cap PO SCH (08:09)
[2023-04-12] MEDS: Azithromycin 250 MG Tab PO SCH (08:09)
[2023-04-12] MEDS: Furosemide 20 MG Tab PO SCH (08:10)
[2023-04-12] MEDS: traMADol 50 MG Tab PO SCH (08:10)
[2023-04-12] MEDS: Cyclobenzaprine 10 MG Tab PO SCH (08:10)
[2023-04-12] MEDS: busPIRone 15 MG Tab PO SCH (08:10)
[2023-04-12] MEDS: cloNIDine 0.1 MG Tab PO SCH (08:11)
[2023-04-12] MEDS: Ferrous Sulfate 325 MG Tab PO SCH (08:12)
[2023-04-12] MEDS: Omeprazole 20 MG Cap.CR PO SCH (08:12)
[2023-04-12] MEDS: Oxybutynin 5 MG Tab.ER PO SCH (08:12)
[2023-04-12] MEDS: Apixaban 5 MG Tab PO SCH (08:12)
[2023-04-12] MEDS: OLANZapine 5 MG Tab PO SCH (08:13)
[2023-04-12] MEDS: Insulin Lispro 100 Units/ML 3 ML Vial SUBCUT SCH (08:15)
[2023-04-12] MEDS: Nystatin Susp 100,000 Unit/ML 5 ML UD Cup PO SCH (08:16)
[2023-04-12] MEDS: Fluticasone NASAL Spray 16 GM Bottle NASBOTH SCH (08:18)
[2023-04-12] MEDS: Nicotine 21 MG/24 Hr Patch TRDERM SCH (08:18)
[2023-04-12] MEDS: Tiotropium Bromide 4 GM Inhalation Spray (2.5mcg/1 dose; 10 doses) INH SCH (08:26)
[2023-04-12] MEDS: DULoxetine 30 MG Cap PO SCH (09:22)
[2023-04-12 10:43] VITALS: BP 138/57; PULSE 48
[2023-04-13] MEDS ORDERED: Tiotropium Bromide 4 GM Inhalation Spray (2.5mcg/1 dose; 10 doses) INH SCH (06:00)
== END 2023-04-12 10:35 | DRG 193 ==
LOC: DL.ED 12:22 → DL.MS 14:08
PROVIDERS: ADMIT Internal Medicine; ATTEND Internal Medicine
DX: J18.9 Pneumonia, unspecified organism (principal); J96.21 Acute and chronic respiratory failure with hypoxia; J44.1 Chronic obstructive pulmonary disease with (acute) exacerbation; Z68.42 Body mass index [BMI] 45.0-49.9, adult; J44.0 Chronic obstructive pulmonary disease with (acute) lower respiratory infection; R62.50 Unspecified lack of expected normal physiological development in childhood; K59.09 Other constipation; G43.909 Migraine, unspecified, not intractable, without status migrainosus; F41.9 Anxiety disorder, unspecified; F32.A Depression, unspecified; M54.9 Dorsalgia, unspecified; G89.29 Other chronic pain; I45.10 Unspecified right bundle-branch block; E66.01 Morbid (severe) obesity due to excess calories; Z96.619 Presence of unspecified artificial shoulder joint; Z88.2 Allergy status to sulfonamides; Z88.8 Allergy status to other drugs, medicaments and biological substances; F17.210 Nicotine dependence, cigarettes, uncomplicated; Z79.01 Long term (current) use of anticoagulants; Z79.899 Other long term (current) drug therapy; Z86.711 Personal history of pulmonary embolism; Z86.718 Personal history of other venous thrombosis and embolism; Z95.2 Presence of prosthetic heart valve; Z95.1 Presence of aortocoronary bypass graft
CPT/HCPCS: 36415; 71045; 80053; 81001; 83605; 83735; 83880; 84145; 84484; 85025; 87040 ×2; 87088; 93005; 93010; 96365; 96367; 96375; 99285 ×2; J0456; J0696; J3475; J7030; J7050; 73700; 80048; 80305-QW; 82947; 87086; 87186; 93970; 94010; 94060; 94640; 94667; 94668; 94761; 94762; 99223; 99232; 99233; 99239; A9270-GY; J1815-GY; J2920; J3490; J7613-GY; J7620-GY

== ENCOUNTER 2023-04-13 18:32 | Emergency (ER) | payer MEDICARE, MEDICAID ==
[2023-04-13] MEDS ORDERED: Sodium Chloride 0.9% 10 ML Syringe FLUSH PRN (18:51)
[2023-04-13 19:08] LABS: BASOPHILS PERCENT AUTO 0.1 % (0.0-1.0); EOSINOPHILS PERCENT AUTO 0.1 % (1.0-3.0); HEMATOCRIT 45.8 % (37.0-47.0); HEMOGLOBIN 14.3 g/dL (12.0-16.0); LYMPHOCYTES PERCENT AUTO 12.4 % (20.5-50.1); MEAN CORPUSCULAR HEMOGLOBIN 24.9 pg (27.0-34.0); MEAN CORPUSCULAR HGB CONC 31.2 g/dL (33.0-35.0); MEAN CORPUSCULAR VOLUME 79.8 fL (80-100); MONOCYTES PERCENT AUTO 7.4 % (2-8); PLATELET COUNT,PLT 390 10^3/uL (150-450); RED BLOOD CELL COUNT 5.74 10^6/uL (4.2-5.4)
[2023-04-13 19:27] LABS: ALBUMIN 3.1 g/dL (3.4-5.0); ANION GAP 12.4 mEq/L (7-13); BILIRUBIN TOTAL 0.3 mg/dL (0.2-1.0); C-REACTIVE PROTEIN 0.73 ng/dL (<=0.30); CALCIUM 8.7 mg/dL (8.5-10.1); CREATININE 1.25 mg/dL (0.55-1.02); POTASSIUM,K 4.4 mmol/L (3.5-5.1); PROTEIN TOTAL,TP 6.5 g/dL (6.4-8.2)
[2023-04-13 19:31] LABS: LACTIC ACID 1.8 mmol/L (0.4-2.0)
[2023-04-13] MEDS ORDERED: traMADol 50 MG Tab PO ONE (19:35)
[2023-04-13 19:37] VITALS: BP 101/66; PULSE 58
[2023-04-13 19:43] LABS: A/G RATIO 0.91; EST CRCL DRUG DOSING (CG) 41.33 mL/min
[2023-04-13] MEDS ORDERED: Lactated Ringers 1,000 ML IV ONE (20:02)
== END 2023-04-13 21:22 | disposition home or self-care (01) ==
LOC: DL.ED 18:32
DX: E86.0 Dehydration (principal); J44.9 Chronic obstructive pulmonary disease, unspecified; K21.9 Gastro-esophageal reflux disease without esophagitis; I10 Essential (primary) hypertension; E66.9 Obesity, unspecified; Z68.42 Body mass index [BMI] 45.0-49.9, adult; Z88.5 Allergy status to narcotic agent; Z88.2 Allergy status to sulfonamides; Z88.1 Allergy status to other antibiotic agents; Z79.01 Long term (current) use of anticoagulants; Z79.899 Other long term (current) drug therapy
CPT/HCPCS: 36415; 80053; 83605; 83880; 85025; 86140; 96360; 99283; A9270; J7120; J3490

== ENCOUNTER 2023-04-24 06:48 | Inpatient (IN) | payer MEDICARE, MEDICAID ==
[2023-04-24] MEDS ORDERED: Albuterol/Ipratropium 3.0-0.5 MG/3 ML Neb Soln ONE (07:02)
[2023-04-24] MEDS ORDERED: Albuterol/Ipratropium 3.0-0.5 MG/3 ML Neb Soln NEB ONE (07:07)
[2023-04-24] MEDS ORDERED: Acetaminophen 500 MG Tab PO ONE (07:07)
[2023-04-24] MEDS ORDERED: methylPREDNISolone Sodium Succinate 125 MG/2 ML SDV IVPUSH ONE (07:07)
[2023-04-24 07:26] LABS: BASOPHILS PERCENT AUTO 0.2 % (0.0-1.0); EOSINOPHILS PERCENT AUTO 0.2 % (1.0-3.0); HEMOGLOBIN 12.4 g/dL (12.0-16.0); LYMPHOCYTES PERCENT AUTO 4.1 % (20.5-50.1); MEAN CORPUSCULAR HEMOGLOBIN 25.3 pg (27.0-34.0); MEAN CORPUSCULAR HGB CONC 30.2 g/dL (33.0-35.0); MEAN CORPUSCULAR VOLUME 83.7 fL (80-100); MONOCYTES PERCENT AUTO 4.1 % (2-8); NEUTROPHILS PERCENT AUTO 91.4 % (42.2-75.2); PLATELET COUNT,PLT 253 10^3/uL (150-450); WHITE BLOOD CELL COUNT,WBC 20.6 10^3/uL (5.0-10.0)
[2023-04-24] MEDS ORDERED: cefTRIAXone 1 GM Vial IVPUSH ONE (07:40)
[2023-04-24 07:46] LABS: ALBUMIN 2.8 g/dL (3.4-5.0); ANION GAP 11.2 mEq/L (7-13); BILIRUBIN TOTAL 0.4 mg/dL (0.2-1.0); BUN/CREATININE RATIO 24.2 (No establ ref range); CALCIUM 8.5 mg/dL (8.5-10.1); CREATININE 0.95 mg/dL (0.55-1.02); EST CRCL DRUG DOSING (CG) 52.09 mL/min; POTASSIUM,K 4.2 mmol/L (3.5-5.1); PROTEIN TOTAL,TP 6.5 g/dL (6.4-8.2)
[2023-04-24 07:50] LABS: A/G RATIO 0.76
[2023-04-24 08:05] LABS: CORONAVIRUS COVID-19 NAA NEGATIVE (NEGATIVE); INFLUENZA A NAA NEGATIVE (NEGATIVE); INFLUENZA B NAA NEGATIVE (NEGATIVE)
[2023-04-24] MEDS ORDERED: Sennosides/Docusate Sodium 50-8.6 MG Tab PO PRN (09:30)
[2023-04-24] MEDS ORDERED: Sodium Chloride 0.9% 10 ML Syringe FLUSH PRN (09:30)
[2023-04-24] MEDS ORDERED: Ondansetron 4 MG/2 ML SDV IVPUSH PRN (09:30)
[2023-04-24] MEDS ORDERED: Magnesium Hydroxide 400 MG/5 ML Susp 30 ML Cup PO PRN (09:30)
[2023-04-24] MEDS ORDERED: Polyethylene Glycol 3350 Powder 17 GM Packet PO PRN (09:30)
[2023-04-24] MEDS ORDERED: Acetaminophen 325 MG Tab PO PRN (09:30)
[2023-04-24] MEDS: Albuterol/Ipratropium 3.0-0.5 MG/3 ML Neb Soln NEB SCH ×4 (10:37→22:04)
[2023-04-24] MEDS ORDERED: Meclizine 12.5 MG Tab PO PRN (15:23)
[2023-04-24] MEDS ORDERED: Acetaminophen 500 MG Tab PO SCH (15:30)
[2023-04-24] MEDS ORDERED: Non-Formulary Medication 1 Each (Estradiol [Estrace 0.01% Vaginal Crm] 42.5 GM Tube) VAG SCH (15:30)
[2023-04-24] MEDS ORDERED: 50% Dextrose in Water 50 ML Syringe IVPUSH PRN (17:08)
[2023-04-24] MEDS ORDERED: Glucagon,Human Recombinant 1 MG Vial IM PRN (17:08)
[2023-04-24] MEDS: HYDROmorphone 0.5 MG/0.5 ML Syringe IVPUSH PRN ×2 (18:05→21:16)
[2023-04-24] MEDS ORDERED: Azithromycin 500 MG in Sodium Chloride 0.9% 250 ML IV ONE (19:24)
[2023-04-24] MEDS: Acetaminophen 500 MG Tab PO SCH (20:32)
[2023-04-24] MEDS: methylPREDNISolone Sodium Succinate 40 MG/1 ML SDV IVPUSH SCH (21:18)
[2023-04-24] MEDS: Cholecalciferol (Vitamin D3) 25 MCG Tab PO SCH (21:23)
[2023-04-24] MEDS: traZODone 50 MG Tab PO SCH (21:23)
[2023-04-24] MEDS: Dicyclomine 10 MG Cap PO SCH (21:23)
[2023-04-24] MEDS: OLANZapine 5 MG Tab PO SCH (21:28)
[2023-04-24] MEDS: busPIRone 15 MG Tab PO SCH (21:28)
[2023-04-24] MEDS: Famotidine 20 MG Tab PO SCH (21:29)
[2023-04-24] MEDS: Apixaban 5 MG Tab PO SCH (21:29)
[2023-04-24] MEDS: DULoxetine 30 MG Cap PO SCH (21:29)
[2023-04-24] MEDS: cloNIDine 0.1 MG Tab PO SCH (21:30)
[2023-04-24] MEDS: Fluticasone NASAL Spray 16 GM Bottle NAS SCH (21:34)
[2023-04-24] MEDS: Sodium Chloride 0.9% 10 ML Syringe FLUSH SCH (21:36)
[2023-04-25] MEDS: Piperacillin/Tazobactam 3.375 GM in Sodium Chloride 0.9% 100 ML IV SCH ×4 (00:34→17:11)
[2023-04-25] MEDS: HYDROmorphone 0.5 MG/0.5 ML Syringe IVPUSH PRN ×3 (01:34→08:39)
[2023-04-25] MEDS: Albuterol/Ipratropium 3.0-0.5 MG/3 ML Neb Soln NEB SCH ×7 (01:36→20:47)
[2023-04-25] MEDS: Acetaminophen 500 MG Tab PO SCH ×4 (03:13→19:44)
[2023-04-25] MEDS: methylPREDNISolone Sodium Succinate 40 MG/1 ML SDV IVPUSH SCH ×3 (05:07→20:40)
[2023-04-25 06:28] LABS: BASOPHILS PERCENT AUTO 0.1 % (0.0-1.0); HEMATOCRIT 37.7 % (37.0-47.0); HEMOGLOBIN 11.3 g/dL (12.0-16.0); LYMPHOCYTES PERCENT AUTO 4.4 % (20.5-50.1); MEAN CORPUSCULAR HEMOGLOBIN 25.2 pg (27.0-34.0); MEAN CORPUSCULAR VOLUME 84.2 fL (80-100); MONOCYTES PERCENT AUTO 1.6 % (2-8); NEUTROPHILS PERCENT AUTO 93.9 % (42.2-75.2); PLATELET COUNT,PLT 235 10^3/uL (150-450); RED BLOOD CELL COUNT 4.48 10^6/uL (4.2-5.4); WHITE BLOOD CELL COUNT,WBC 14.4 10^3/uL (5.0-10.0)
[2023-04-25 07:02] LABS: ALBUMIN 2.6 g/dL (3.4-5.0); ANION GAP 14.1 mEq/L (7-13); BILIRUBIN TOTAL 0.3 mg/dL (0.2-1.0); BUN/CREATININE RATIO 30.4 (No establ ref range); C-REACTIVE PROTEIN 11.82 ng/dL (<=0.30); CALCIUM 8.5 mg/dL (8.5-10.1); CREATININE 0.79 mg/dL (0.55-1.02); EST CRCL DRUG DOSING (CG) 65.39 mL/min; MAGNESIUM 2.1 mg/dL (1.8-2.4); POTASSIUM,K 4.1 mmol/L (3.5-5.1); PROTEIN TOTAL,TP 6.3 g/dL (6.4-8.2)
[2023-04-25 07:05] LABS: A/G RATIO 0.7
[2023-04-25] MEDS: Azithromycin 500 MG in Sodium Chloride 0.9% 250 ML IV SCH (08:29)
[2023-04-25] MEDS: Dicyclomine 10 MG Cap PO SCH ×3 (08:30→20:36)
[2023-04-25] MEDS: Furosemide 40 MG Tab PO SCH (08:30)
[2023-04-25] MEDS: Magnesium Oxide 400 MG Tab PO SCH (08:30)
[2023-04-25] MEDS: Nicotine 21 MG/24 Hr Patch TRDERM SCH (08:30)
[2023-04-25] MEDS: OLANZapine 5 MG Tab PO SCH ×2 (08:30→20:36)
[2023-04-25] MEDS: Omeprazole 20 MG Cap.CR PO SCH (08:31)
[2023-04-25] MEDS: cloNIDine 0.1 MG Tab PO SCH ×2 (08:31→20:39)
[2023-04-25] MEDS: Oxybutynin 5 MG Tab PO SCH (08:31)
[2023-04-25] MEDS: busPIRone 15 MG Tab PO SCH ×3 (08:31→20:38)
[2023-04-25] MEDS: Apixaban 5 MG Tab PO SCH ×2 (08:32→20:37)
[2023-04-25] MEDS: Insulin Lispro 100 Units/ML 3 ML Vial SUBCUT SCH ×3 (08:32→16:48)
[2023-04-25] MEDS ORDERED: Non-Formulary Medication 1 Each (Umeclidinium Brm/Vilanterol Tr [Anoro Ellipta 62.5-25 Mcg INH SCH (09:00)
[2023-04-25] MEDS: Fluticasone NASAL Spray 16 GM Bottle NAS SCH ×2 (09:08→21:14)
[2023-04-25] MEDS: DULoxetine 30 MG Cap PO SCH ×2 (09:08→20:37)
[2023-04-25] MEDS: Sodium Chloride 0.9% 10 ML Syringe FLUSH SCH ×2 (09:08→21:34)
[2023-04-25] MEDS ORDERED: Ketorolac 30 MG/ML SDV IVPUSH ONE (10:46)
[2023-04-25] MEDS ORDERED: Lidocaine 5% 700 MG Patch TOP ONE (10:47)
[2023-04-25] MEDS ORDERED: HYDROmorphone 0.5 MG/0.5 ML Syringe IVPUSH PRN (12:30)
[2023-04-25] MEDS ORDERED: oxyCODONE ER 10 MG TAB.ER PO ONE (16:25)
[2023-04-25] MEDS: HYDROmorphone 2 MG/ML Syringe IVPUSH PRN (17:58)
[2023-04-25] MEDS: Famotidine 20 MG Tab PO SCH (20:36)
[2023-04-25] MEDS: Cholecalciferol (Vitamin D3) 25 MCG Tab PO SCH (20:36)
[2023-04-25] MEDS: Acetaminophen/oxyCODONE 325-5 MG Tab PO PRN (20:38)
[2023-04-25] MEDS: traZODone 50 MG Tab PO SCH (20:40)
[2023-04-26] MEDS: HYDROmorphone 2 MG/ML Syringe IVPUSH PRN ×4 (00:05→17:05)
[2023-04-26] MEDS: Piperacillin/Tazobactam 3.375 GM in Sodium Chloride 0.9% 100 ML IV SCH ×3 (00:08→12:05)
[2023-04-26] MEDS: Albuterol/Ipratropium 3.0-0.5 MG/3 ML Neb Soln NEB SCH ×5 (01:48→16:47)
[2023-04-26] MEDS: Acetaminophen 500 MG Tab PO SCH ×3 (03:01→13:37)
[2023-04-26] MEDS: Acetaminophen/oxyCODONE 325-5 MG Tab PO PRN ×3 (03:37→15:53)
[2023-04-26] MEDS: methylPREDNISolone Sodium Succinate 40 MG/1 ML SDV IVPUSH SCH ×2 (05:10→12:11)
[2023-04-26 06:34] LABS: HEMATOCRIT 36.5 % (37.0-47.0); HEMOGLOBIN 10.8 g/dL (12.0-16.0); LYMPHOCYTES PERCENT AUTO 4.4 % (20.5-50.1); MEAN CORPUSCULAR HEMOGLOBIN 25.1 pg (27.0-34.0); MEAN CORPUSCULAR HGB CONC 29.6 g/dL (33.0-35.0); MEAN CORPUSCULAR VOLUME 84.9 fL (80-100); MONOCYTES PERCENT AUTO 3.5 % (2-8); NEUTROPHILS PERCENT AUTO 92.1 % (42.2-75.2); PLATELET COUNT,PLT 251 10^3/uL (150-450); WHITE BLOOD CELL COUNT,WBC 14.7 10^3/uL (5.0-10.0)
[2023-04-26 06:55] LABS: ALBUMIN 2.7 g/dL (3.4-5.0); ANION GAP 11.3 mEq/L (7-13); BILIRUBIN TOTAL 0.3 mg/dL (0.2-1.0); BUN/CREATININE RATIO 41.7 (No establ ref range); C-REACTIVE PROTEIN 3.84 ng/dL (<=0.30); CALCIUM 8.5 mg/dL (8.5-10.1); CREATININE 0.84 mg/dL (0.55-1.02); EST CRCL DRUG DOSING (CG) 61.5 mL/min; MAGNESIUM 2.1 mg/dL (1.8-2.4); POTASSIUM,K 4.3 mmol/L (3.5-5.1); PROTEIN TOTAL,TP 6.3 g/dL (6.4-8.2)
[2023-04-26 06:56] LABS: A/G RATIO 0.75
[2023-04-26] MEDS: Azithromycin 500 MG in Sodium Chloride 0.9% 250 ML IV SCH (08:08)
[2023-04-26] MEDS: cloNIDine 0.1 MG Tab PO SCH (08:09)
[2023-04-26] MEDS: Apixaban 5 MG Tab PO SCH (08:10)
[2023-04-26] MEDS: Dicyclomine 10 MG Cap PO SCH ×2 (08:10→13:36)
[2023-04-26] MEDS: Oxybutynin 5 MG Tab PO SCH (08:10)
[2023-04-26] MEDS: busPIRone 15 MG Tab PO SCH ×2 (08:10→13:36)
[2023-04-26] MEDS: Furosemide 40 MG Tab PO SCH (08:10)
[2023-04-26] MEDS: Omeprazole 20 MG Cap.CR PO SCH (08:10)
[2023-04-26] MEDS: DULoxetine 30 MG Cap PO SCH (08:10)
[2023-04-26] MEDS: Magnesium Oxide 400 MG Tab PO SCH (08:11)
[2023-04-26] MEDS: Nicotine 21 MG/24 Hr Patch TRDERM SCH (08:11)
[2023-04-26] MEDS: OLANZapine 5 MG Tab PO SCH (08:11)
[2023-04-26] MEDS: Fluticasone NASAL Spray 16 GM Bottle NAS SCH (08:12)
[2023-04-26] MEDS: Insulin Lispro 100 Units/ML 3 ML Vial SUBCUT SCH ×3 (08:13→16:50)
[2023-04-26] MEDS ORDERED: Lidocaine 5% 700 MG Patch TOP SCH (09:00)
[2023-04-26] MEDS: Sodium Chloride 0.9% 10 ML Syringe FLUSH SCH (09:15)
[2023-04-26] MEDS ORDERED: Nitroglycerin 0.4 MG Tab.SL SL ONE (12:31)
[2023-04-26] MEDS ORDERED: Famotidine 20 MG/2 ML SDV IVPUSH ONE (12:31)
[2023-04-26 17:11] VITALS: BP 155/83; PULSE 52
== END 2023-04-26 17:40 | DRG 190 ==
LOC: DL.ED 06:48 → DL.MS 08:25
PROVIDERS: ADMIT Internal Medicine; ATTEND Internal Medicine
DX: J44.1 Chronic obstructive pulmonary disease with (acute) exacerbation (principal); J44.9 Chronic obstructive pulmonary disease, unspecified; J18.9 Pneumonia, unspecified organism; Z68.42 Body mass index [BMI] 45.0-49.9, adult; J44.0 Chronic obstructive pulmonary disease with (acute) lower respiratory infection; I10 Essential (primary) hypertension; K21.9 Gastro-esophageal reflux disease without esophagitis; Z88.6 Allergy status to analgesic agent; F17.210 Nicotine dependence, cigarettes, uncomplicated; G89.29 Other chronic pain; D50.9 Iron deficiency anemia, unspecified; N32.81 Overactive bladder; F41.9 Anxiety disorder, unspecified; F32.A Depression, unspecified; M79.671 Pain in right foot; R06.89 Other abnormalities of breathing; K59.09 Other constipation; M79.5 Residual foreign body in soft tissue; F39 Unspecified mood [affective] disorder; Z96.611 Presence of right artificial shoulder joint; M54.9 Dorsalgia, unspecified; G43.909 Migraine, unspecified, not intractable, without status migrainosus; E66.9 Obesity, unspecified; R73.9 Hyperglycemia, unspecified; E88.09 Other disorders of plasma-protein metabolism, not elsewhere classified; Z98.890 Other specified postprocedural states; Z86.711 Personal history of pulmonary embolism; Z91.148 Patient's other noncompliance with medication regimen for other reason; Z79.01 Long term (current) use of anticoagulants; Z11.52 Encounter for screening for COVID-19; Z79.899 Other long term (current) drug therapy; Z79.1 Long term (current) use of non-steroidal anti-inflammatories (NSAID); Z79.52 Long term (current) use of systemic steroids; Z88.2 Allergy status to sulfonamides; Z88.8 Allergy status to other drugs, medicaments and biological substances; Z88.5 Allergy status to narcotic agent; Z86.718 Personal history of other venous thrombosis and embolism; Z95.1 Presence of aortocoronary bypass graft; Z95.2 Presence of prosthetic heart valve
CPT/HCPCS: 0240U; 36415; 71045; 73620-RT; 80053; 82947; 83735; 83880; 84484; 84550; 85025; 86140; 87070; 87205; 93005; 93010; 94060; 94640; 94667; 94668; 94760; 96374; 96375; 99284; 99285-25; A9270-GY; J0456; J0696; J1170; J1815-GY; J1885; J2543; J2920; J2930; J3490; J7050; J7620-GY

== ENCOUNTER 2023-05-03 14:14 | Emergency (ER) | payer MEDICARE, MEDICAID ==
[2023-05-03] MEDS ORDERED: Albuterol/Ipratropium 3.0-0.5 MG/3 ML Neb Soln NEB ONE (14:48)
[2023-05-03 15:14] LABS: HEMOGLOBIN 12.4 g/dL (12.0-16.0); MEAN CORPUSCULAR HEMOGLOBIN 25.1 pg (27.0-34.0); MEAN CORPUSCULAR HGB CONC 30.2 g/dL (33.0-35.0); PLATELET COUNT,PLT 432 10^3/uL (150-450); RED BLOOD CELL COUNT 4.94 10^6/uL (4.2-5.4); WHITE BLOOD CELL COUNT,WBC 13.1 10^3/uL (5.0-10.0)
[2023-05-03 15:17] LABS: BASOPHILS PERCENT AUTO 0.2 % (0.0-1.0); EOSINOPHILS PERCENT AUTO 1.1 % (1.0-3.0); LYMPHOCYTES PERCENT AUTO 20.4 % (20.5-50.1); MONOCYTES PERCENT AUTO 6.9 % (2-8); NEUTROPHILS PERCENT AUTO 71.4 % (42.2-75.2)
[2023-05-03 15:32] LABS: BAND PERCENT MAN 3 %; LYMPHOCYTES PERCENT MAN 13 % (20-50); MONOCYTES PERCENT MAN 6 % (2-8); SEG NEUTROPHILS PERCENT MAN 78 % (42-75)
[2023-05-03 15:55] VITALS: BP 122/69; PULSE 88
== END 2023-05-03 16:18 | disposition home or self-care (01) ==
LOC: DL.ED 14:14
DX: J96.11 Chronic respiratory failure with hypoxia (principal); I10 Essential (primary) hypertension; K21.9 Gastro-esophageal reflux disease without esophagitis; E66.9 Obesity, unspecified; F17.210 Nicotine dependence, cigarettes, uncomplicated; Z68.42 Body mass index [BMI] 45.0-49.9, adult; Z86.718 Personal history of other venous thrombosis and embolism; Z86.711 Personal history of pulmonary embolism; Z88.8 Allergy status to other drugs, medicaments and biological substances; Z88.5 Allergy status to narcotic agent; Z79.51 Long term (current) use of inhaled steroids; Z79.01 Long term (current) use of anticoagulants
CPT/HCPCS: 36415; 71046; 85025; 99284; 99285; J7620-GY

== ENCOUNTER 2023-05-29 07:45 | Emergency (ER) | payer MEDICARE, MEDICAID ==
[2023-05-29] MEDS ORDERED: traMADol 50 MG Tab PO ONE (08:13)
[2023-05-29 08:28] LABS: APPEARANCE,URINE SLIGHTLY CLOUDY (CLEAR); BILIRUBIN,URINE NEGATIVE (NEGATIVE); COLOR,URINE YELLOW (YELLOW); GLUCOSE,URINE NEGATIVE (NEGATIVE); KETONES,URINE NEGATIVE (NEGATIVE); LEUKOCYTE ESTERASE,URINE NEGATIVE (NEGATIVE); NITRITE,URINE NEGATIVE (NEGATIVE); OCCULT BLOOD,URINE NEGATIVE (NEGATIVE); PROTEIN,URINE 30 (NEGATIVE); UROBILINOGEN,URINE 0.2 mg/dL (0.2-1.0)
[2023-05-29 08:35] LABS: EPITHELIAL CELLS,URINE MANY /HPF (NOT SEEN)
[2023-05-29 08:36] LABS: BACTERIA,URINE FEW /HPF (0-FEW/HPF)
[2023-05-29 08:38] LABS: AMORPHOUS SEDIMENT,URINE MODERATE /HPF (NOT SEEN); RBC,URINE NOT SEEN /HPF (0-5); WBC,URINE 0-5 /HPF (0-5/HPF)
[2023-05-29 09:04] LABS: CORONAVIRUS COVID-19 NAA NEGATIVE (NEGATIVE); INFLUENZA A NAA NEGATIVE (NEGATIVE); INFLUENZA B NAA NEGATIVE (NEGATIVE); RESPIRATORY SYNCYTIAL VIR NAA NEGATIVE (NEGATIVE)
[2023-05-29] MEDS ORDERED: Take Home: metroNIDAZOLE 250 MG Tab, 8 Tab Pack PO ONE (09:16)
[2023-05-29] MEDS ORDERED: Take Home: traMADol 50 MG, 4 Tab Pack PO ONE (09:31)
[2023-05-29 10:03] VITALS: BP 133/59; PULSE 80
== END 2023-05-29 09:48 | disposition home or self-care (01) ==
LOC: DL.ED 07:45
DX: M79.7 Fibromyalgia (principal); N76.0 Acute vaginitis; I10 Essential (primary) hypertension; E66.9 Obesity, unspecified; K21.9 Gastro-esophageal reflux disease without esophagitis; J44.9 Chronic obstructive pulmonary disease, unspecified; Z79.01 Long term (current) use of anticoagulants; Z20.822 Contact with and (suspected) exposure to COVID-19; Z95.1 Presence of aortocoronary bypass graft; Z79.899 Other long term (current) drug therapy; Z88.8 Allergy status to other drugs, medicaments and biological substances; Z68.42 Body mass index [BMI] 45.0-49.9, adult
CPT/HCPCS: 0241U; 81001; 99284; A9270-GY

== ENCOUNTER 2023-09-22 10:57 | Inpatient (IN) | payer MEDICARE, MEDICAID ==
[2023-09-22] MEDS: Sodium Chloride 0.9% 1,000 ML IV ONE (11:23)
[2023-09-22] MEDS: Sodium Chloride 0.9% 10 ML Syringe FLUSH PRN (11:23)
[2023-09-22] MEDS: cefTRIAXone 1 GM Vial IVPUSH ONE (11:34)
[2023-09-22 11:36] LABS: BASOPHILS PERCENT AUTO 0.3 % (0.0-1.0); EOSINOPHILS PERCENT AUTO 0.9 % (1.0-3.0); HEMOGLOBIN 9.8 g/dL (12.0-16.0); LYMPHOCYTES PERCENT AUTO 11.4 % (20.5-50.1); MEAN CORPUSCULAR HEMOGLOBIN 19.9 pg (27.0-34.0); MEAN CORPUSCULAR HGB CONC 28.8 g/dL (33.0-35.0); MONOCYTES PERCENT AUTO 7.8 % (2-8); NEUTROPHILS PERCENT AUTO 79.6 % (42.2-75.2); PLATELET COUNT,PLT 398 10^3/uL (150-450); RED BLOOD CELL COUNT 4.93 10^6/uL (4.2-5.4); WHITE BLOOD CELL COUNT,WBC 17.8 10^3/uL (5.0-10.0)
[2023-09-22 11:57] LABS: ALBUMIN 2.8 g/dL (3.4-5.0); ANION GAP 15.2 mEq/L (7-13); BILIRUBIN TOTAL 0.2 mg/dL (0.2-1.0); BUN/CREATININE RATIO 21.2 (No establ ref range); CALCIUM 9.1 mg/dL (8.5-10.1); CREATININE 0.99 mg/dL (0.55-1.02); EST CRCL DRUG DOSING (CG) 51.53 mL/min; POTASSIUM,K 4.2 mmol/L (3.5-5.1)
[2023-09-22 12:04] LABS: APPEARANCE,URINE CLEAR (CLEAR); BILIRUBIN,URINE NEGATIVE (NEGATIVE); COLOR,URINE YELLOW (YELLOW); GLUCOSE,URINE NEGATIVE (NEGATIVE); KETONES,URINE NEGATIVE (NEGATIVE); LEUKOCYTE ESTERASE,URINE NEGATIVE (NEGATIVE); NITRITE,URINE NEGATIVE (NEGATIVE); OCCULT BLOOD,URINE NEGATIVE (NEGATIVE); PROTEIN,URINE NEGATIVE (NEGATIVE); UROBILINOGEN,URINE 0.2 mg/dL (0.2-1.0)
[2023-09-22] MEDS: HYDROmorphone 0.5 MG/0.5 ML Syringe IVPUSH ONE (12:12)
[2023-09-22 12:15] LABS: A/G RATIO 0.67
[2023-09-22 12:18] LABS: BENZODIAZEPINE,URINE POSITIVE (NEGATIVE); MDMA (ECSTASY), URINE NEGATIVE (NEGATIVE); METHADONE,URINE NEGATIVE (NEGATIVE); METHAMPHETAMINES,URINE NEGATIVE (NEGATIVE)
[2023-09-22 12:18] LABS: INFLUENZA A NAA NEGATIVE (NEGATIVE); INFLUENZA B NAA NEGATIVE (NEGATIVE); RESPIRATORY SYNCYTIAL VIR NAA NEGATIVE (NEGATIVE)
[2023-09-22 12:19] LABS: AMPHETAMINES,URINE NEGATIVE (NEGATIVE); BARBITURATES,URINE NEGATIVE (NEGATIVE); OPIATES,URINE NEGATIVE (NEGATIVE); OXYCODONE,URINE NEGATIVE (NEGATIVE); PHENCYCLIDINE,URINE NEGATIVE (NEGATIVE); TCA,URINE NEGATIVE (NEGATIVE)
[2023-09-22 12:23] LABS: CORONAVIRUS COVID-19 NAA POSITIVE (NEGATIVE)
[2023-09-22] MEDS ORDERED: Polyethylene Glycol 3350 Powder 17 GM Packet PO PRN (12:58)
[2023-09-22] MEDS ORDERED: Acetaminophen/oxyCODONE 325-5 MG Tab PO PRN (12:58)
[2023-09-22] MEDS ORDERED: Bisacodyl 5 MG Tab PO PRN (12:58)
[2023-09-22] MEDS ORDERED: Ondansetron 4 MG/2 ML SDV IVPUSH PRN (12:58)
[2023-09-22] MEDS ORDERED: Ibuprofen 400 MG Tab PO PRN (12:58)
[2023-09-22] MEDS ORDERED: Naloxone 2 MG/2 ML Syringe IVPUSH PRN (12:58)
[2023-09-22] MEDS ORDERED: Magnesium Hydroxide 400 MG/5 ML Susp 30 ML Cup PO PRN (12:58)
[2023-09-22] MEDS ORDERED: Glucagon,Human Recombinant 1 MG Vial IM PRN (13:13)
[2023-09-22] MEDS ORDERED: 50% Dextrose in Water 50 ML Syringe IVPUSH PRN (13:13)
[2023-09-22] MEDS: REMDESIVIR 200 MG in Sodium Chloride 0.9% 250 ML IV ONE (14:08)
[2023-09-22] MEDS: Pantoprazole 40 MG Vial IVPUSH ONE (14:10)
[2023-09-22] MEDS: Dexamethasone 4 MG/ML SDV IVPUSH ONE (14:12)
[2023-09-22] MEDS: traMADol 50 MG Tab PO PRN (16:30)
[2023-09-22] MEDS: Pantoprazole 40 MG Tab.CR PO SCH (16:30)
[2023-09-22] MEDS: Sodium Chloride 0.9% 1,000 ML IV SCH (16:34)
[2023-09-22] MEDS ORDERED: Meclizine 12.5 MG Tab PO PRN (17:05)
[2023-09-22] MEDS: Insulin Lispro 100 Units/ML 3 ML Vial SUBCUT SCH (19:04)
[2023-09-22] MEDS: HYDROmorphone 0.5 MG/0.5 ML Syringe IVPUSH PRN (19:07)
[2023-09-22] MEDS: cloNIDine 0.1 MG Tab PO SCH (19:07)
[2023-09-22] MEDS: Budesonide 0.5 MG/2 ML Neb Susp INH SCH (19:43)
[2023-09-22] MEDS: DULoxetine 30 MG Cap PO SCH (21:00)
[2023-09-22] MEDS: Apixaban 5 MG Tab PO SCH (21:00)
[2023-09-22] MEDS: OLANZapine 5 MG Tab PO SCH (21:00)
[2023-09-22] MEDS: traZODone 50 MG Tab PO SCH (21:00)
[2023-09-22] MEDS: LORazepam 0.5 MG Tab PO SCH (21:00)
[2023-09-22] MEDS: guaiFENesin 600 MG Tab.ER PO SCH (21:00)
[2023-09-22] MEDS: VANCOmycin 1.5 GM/300 ML 300 ML IV SCH (21:00)
[2023-09-22] MEDS: busPIRone 15 MG Tab PO SCH (21:00)
[2023-09-23] MEDS: Albuterol/Ipratropium 3.0-0.5 MG/3 ML Neb Soln INH SCH (05:32)
[2023-09-23 06:41] LABS: A/G RATIO 0.59; ALBUMIN 2.3 g/dL (3.4-5.0); ANION GAP 13.2 mEq/L (7-13); BILIRUBIN DIRECT 0.1 mg/dL (0.0-0.2); BILIRUBIN TOTAL 0.2 mg/dL (0.2-1.0); BUN/CREATININE RATIO 23.8 (No establ ref range); C-REACTIVE PROTEIN 12.85 ng/dL (<=0.50); CALCIUM 8.3 mg/dL (8.5-10.1); CREATININE 0.84 mg/dL (0.55-1.02); EST CRCL DRUG DOSING (CG) 60.73 mL/min; POTASSIUM,K 4.2 mmol/L (3.5-5.1); PROTEIN TOTAL,TP 6.2 g/dL (6.4-8.2)
[2023-09-23 06:44] LABS: HEMATOCRIT 32.1 % (37.0-47.0); MEAN CORPUSCULAR HEMOGLOBIN 19.8 pg (27.0-34.0); MEAN CORPUSCULAR VOLUME 70.5 fL (80-100); PLATELET COUNT,PLT 339 10^3/uL (150-450); RED BLOOD CELL COUNT 4.55 10^6/uL (4.2-5.4); WHITE BLOOD CELL COUNT,WBC 14.9 10^3/uL (5.0-10.0)
[2023-09-23 07:28] LABS: BASOPHILS PERCENT AUTO 0.1 % (0.0-1.0); LYMPHOCYTES PERCENT AUTO 8.5 % (20.5-50.1); MONOCYTES PERCENT AUTO 5.8 % (2-8); NEUTROPHILS PERCENT AUTO 85.6 % (42.2-75.2)
[2023-09-23 07:44] LABS: BAND PERCENT MAN 1 %; LYMPHOCYTES PERCENT MAN 7 % (20-50); MONOCYTES PERCENT MAN 4 % (2-8); SEG NEUTROPHILS PERCENT MAN 88 % (42-75)
[2023-09-23] MEDS: REMDESIVIR 100 MG in Sodium Chloride 0.9% 100 ML IV SCH (08:16)
[2023-09-23] MEDS: cefTRIAXone 2 GM Vial IVPUSH SCH (08:19)
[2023-09-23] MEDS: Dexamethasone 6 MG TABLET PO SCH (08:22)
[2023-09-23] MEDS: Oxybutynin 5 MG Tab.ER PO SCH (08:22)
[2023-09-23] MEDS: cloNIDine 0.1 MG Tab PO SCH (08:22)
[2023-09-23] MEDS: Furosemide 40 MG Tab PO SCH (08:23)
[2023-09-23] MEDS ORDERED: Oxybutynin 5 MG Tab PO SCH (09:00)
[2023-09-23] MEDS: oxyCODONE ER 20 MG TAB.ER PO ONE (10:06)
[2023-09-23] MEDS: Loperamide 2 MG Cap PO SCH (10:06)
[2023-09-23] MEDS: Nicotine 21 MG/24 Hr Patch TRDERM SCH (10:06)
[2023-09-23] MEDS: Ketorolac 30 MG/ML SDV IVPUSH PRN (18:56)
[2023-09-23] MEDS: guaiFENesin/Dextromethorphan 100-10 MG/5 ML Soln 5 ML Cup PO PRN (20:30)
[2023-09-23] MEDS: Albuterol/Ipratropium 3.0-0.5 MG/3 ML Neb Soln NEB PRN (20:30)
[2023-09-23] MEDS: oxyCODONE ER 20 MG TAB.ER PO SCH (20:30)
[2023-09-23] MEDS: HYDROmorphone 0.5 MG/0.5 ML Syringe IVPUSH PRN (21:00)
[2023-09-24 06:36] LABS: HEMATOCRIT 33.6 % (37.0-47.0); HEMOGLOBIN 9.3 g/dL (12.0-16.0); MEAN CORPUSCULAR HEMOGLOBIN 19.6 pg (27.0-34.0); MEAN CORPUSCULAR HGB CONC 27.7 g/dL (33.0-35.0); MEAN CORPUSCULAR VOLUME 70.9 fL (80-100); PLATELET COUNT,PLT 411 10^3/uL (150-450); RED BLOOD CELL COUNT 4.74 10^6/uL (4.2-5.4); WHITE BLOOD CELL COUNT,WBC 19.6 10^3/uL (5.0-10.0)
[2023-09-24 06:52] LABS: ALBUMIN 2.7 g/dL (3.4-5.0); ANION GAP 14.4 mEq/L (7-13); BASOPHILS PERCENT AUTO 0.2 % (0.0-1.0); BILIRUBIN DIRECT 0.1 mg/dL (0.0-0.2); BILIRUBIN TOTAL 0.2 mg/dL (0.2-1.0); BUN/CREATININE RATIO 24.8 (No establ ref range); C-REACTIVE PROTEIN 7.55 ng/dL (<=0.50); CALCIUM 8.8 mg/dL (8.5-10.1); CREATININE 1.01 mg/dL (0.55-1.02); EOSINOPHILS PERCENT AUTO 0.1 % (1.0-3.0); EST CRCL DRUG DOSING (CG) 50.51 mL/min; MAGNESIUM 2.1 mg/dL (1.8-2.4); MONOCYTES PERCENT AUTO 6.8 % (2-8); NEUTROPHILS PERCENT AUTO 84.9 % (42.2-75.2); POTASSIUM,K 4.4 mmol/L (3.5-5.1); PROTEIN TOTAL,TP 6.9 g/dL (6.4-8.2)
[2023-09-24 06:56] LABS: A/G RATIO 0.64
[2023-09-24 07:08] LABS: BAND PERCENT MAN 1 %; LYMPHOCYTES PERCENT MAN 8 % (20-50); MONOCYTES PERCENT MAN 8 % (2-8); SEG NEUTROPHILS PERCENT MAN 83 % (42-75)
[2023-09-24] MEDS: fentaNYL 12 MCG/HR Transdermal Patch TRDERM SCH (12:57)
[2023-09-24] MEDS: Ziprasidone Mesylate 20 MG Vial IM PRN (21:45)
[2023-09-25 06:49] LABS: HEMATOCRIT 32.3 % (37.0-47.0); HEMOGLOBIN 9.1 g/dL (12.0-16.0); MEAN CORPUSCULAR HEMOGLOBIN 19.7 pg (27.0-34.0); MEAN CORPUSCULAR HGB CONC 28.2 g/dL (33.0-35.0); MEAN CORPUSCULAR VOLUME 70.1 fL (80-100); PLATELET COUNT,PLT 391 10^3/uL (150-450); RED BLOOD CELL COUNT 4.61 10^6/uL (4.2-5.4); WHITE BLOOD CELL COUNT,WBC 17.6 10^3/uL (5.0-10.0)
[2023-09-25 07:05] LABS: BASOPHILS PERCENT AUTO 0.2 % (0.0-1.0); EOSINOPHILS PERCENT AUTO 0.2 % (1.0-3.0); LYMPHOCYTES PERCENT AUTO 10.9 % (20.5-50.1); MONOCYTES PERCENT AUTO 6.1 % (2-8); NEUTROPHILS PERCENT AUTO 82.6 % (42.2-75.2)
[2023-09-25 07:20] LABS: ALBUMIN 2.5 g/dL (3.4-5.0); ANION GAP 10.3 mEq/L (7-13); BILIRUBIN DIRECT 0.1 mg/dL (0.0-0.2); BILIRUBIN TOTAL 0.1 mg/dL (0.2-1.0); BUN/CREATININE RATIO 31.7 (No establ ref range); C-REACTIVE PROTEIN 5.3 ng/dL (<=0.50); CALCIUM 8.3 mg/dL (8.5-10.1); CREATININE 0.82 mg/dL (0.55-1.02); EST CRCL DRUG DOSING (CG) 62.21 mL/min; POTASSIUM,K 4.3 mmol/L (3.5-5.1); PROTEIN TOTAL,TP 6.2 g/dL (6.4-8.2)
[2023-09-25 07:21] LABS: A/G RATIO 0.68
[2023-09-25 07:56] LABS: BAND PERCENT MAN 2 %; LYMPHOCYTES PERCENT MAN 9 % (20-50); MONOCYTES PERCENT MAN 7 % (2-8); SEG NEUTROPHILS PERCENT MAN 82 % (42-75)
[2023-09-25] MEDS: LORazepam 0.5 MG Tab PO PRN (12:10)
[2023-09-25] MEDS: Ketorolac 30 MG/ML SDV IVPUSH PRN (13:46)
[2023-09-26 06:46] LABS: ALANINE AMINOTRANSFERASE,ALT 66 U/L (14-59); ALBUMIN 2.4 g/dL (3.4-5.0); ALKALINE PHOSPHATASE 242 U/L (46-116); ANION GAP 11.4 mEq/L (7-13); ASPARTATE AMNIOTRANSFERASE,AST 22 U/L (15-37); BILIRUBIN DIRECT < 0.1 mg/dL (0.0-0.2); BILIRUBIN TOTAL 0.2 mg/dL (0.2-1.0); BLOOD UREA NITROGEN,BUN 27 mg/dL (7-18); C-REACTIVE PROTEIN 2.91 ng/dL (<=0.50); CALCIUM 8.1 mg/dL (8.5-10.1); CARBON DIOXIDE,CO2 29 mmol/L (21-32); CHLORIDE,CL 101 mmol/L (98-107); CREATININE 0.93 mg/dL (0.55-1.02); EST CRCL DRUG DOSING (CG) 54.85 mL/min; GLUCOSE RANDOM 102 mg/dL (70-99); MAGNESIUM 1.8 mg/dL (1.8-2.4); POTASSIUM,K 4.4 mmol/L (3.5-5.1); SODIUM,NA 137 mmol/L (136-145)
[2023-09-26 06:53] LABS: A/G RATIO 0.67; ESTIMATED GFR 70 mL/min (>=60)
[2023-09-26 07:01] LABS: HEMATOCRIT 33.4 % (37.0-47.0); HEMOGLOBIN 9.5 g/dL (12.0-16.0); MEAN CORPUSCULAR HEMOGLOBIN 19.6 pg (27.0-34.0); MEAN CORPUSCULAR HGB CONC 28.4 g/dL (33.0-35.0); MEAN CORPUSCULAR VOLUME 68.9 fL (80-100); PLATELET COUNT,PLT 446 10^3/uL (150-450); RED BLOOD CELL COUNT 4.85 10^6/uL (4.2-5.4)
[2023-09-26 07:33] LABS: BASOPHILS PERCENT AUTO 0.1 % (0.0-1.0); EOSINOPHILS PERCENT AUTO 0.2 % (1.0-3.0); LYMPHOCYTES PERCENT AUTO 16.3 % (20.5-50.1); MONOCYTES PERCENT AUTO 6.2 % (2-8); NEUTROPHILS PERCENT AUTO 77.2 % (42.2-75.2)
[2023-09-26 07:38] LABS: BAND PERCENT MAN 2 %; LYMPHOCYTES PERCENT MAN 16 % (20-50); SEG NEUTROPHILS PERCENT MAN 75 % (42-75)
[2023-09-26 07:39] LABS: MONOCYTES PERCENT MAN 4 % (2-8)
[2023-09-27 06:45] LABS: HEMATOCRIT 35.3 % (37.0-47.0); MEAN CORPUSCULAR HEMOGLOBIN 19.4 pg (27.0-34.0); MEAN CORPUSCULAR HGB CONC 28.3 g/dL (33.0-35.0); MEAN CORPUSCULAR VOLUME 68.5 fL (80-100); PLATELET COUNT,PLT 534 10^3/uL (150-450); RED BLOOD CELL COUNT 5.15 10^6/uL (4.2-5.4); WHITE BLOOD CELL COUNT,WBC 14.5 10^3/uL (5.0-10.0)
[2023-09-27 06:51] LABS: ALBUMIN 2.6 g/dL (3.4-5.0); BILIRUBIN TOTAL 0.2 mg/dL (0.2-1.0); BUN/CREATININE RATIO 29.5 (No establ ref range); CALCIUM 8.2 mg/dL (8.5-10.1); CREATININE 0.95 mg/dL (0.55-1.02); EST CRCL DRUG DOSING (CG) 53.7 mL/min
[2023-09-27 06:52] LABS: A/G RATIO 0.76
[2023-09-27 06:53] LABS: BASOPHILS PERCENT AUTO 0.1 % (0.0-1.0); EOSINOPHILS PERCENT AUTO 0.4 % (1.0-3.0); LYMPHOCYTES PERCENT AUTO 20.9 % (20.5-50.1); MONOCYTES PERCENT AUTO 6.6 % (2-8)
[2023-09-27 07:02] LABS: PERCENT FE SATURATION 3.4 % (20.0-50.0)
[2023-09-27 07:36] LABS: BAND PERCENT MAN 2 %; LYMPHOCYTES PERCENT MAN 27 % (20-50); MONOCYTES PERCENT MAN 4 % (2-8); SEG NEUTROPHILS PERCENT MAN 67 % (42-75)
[2023-09-27 12:07] VITALS: BP 150/80; PULSE 64
[2023-09-27] MEDS ORDERED: VANCOmycin 1.5 GM/300 ML 300 ML IV SCH (16:00)
== END 2023-09-27 13:00 | DRG 602 ==
LOC: DL.ED 10:57 → DL.MS 13:06
PROVIDERS: ADMIT Internal Medicine; ATTEND Emergency Medicine
PROC: 3E0333Z Introduction of Anti-inflammatory into Peripheral Vein, Percutaneous Approach (ICD-10-PCS; principal; 2023-09-22)
PROC: XW033E5 Introduction of Remdesivir Anti-infective into Peripheral Vein, Percutaneous Approach, New Technology Group 5 (ICD-10-PCS; 2023-09-22)
DX: L03.115 Cellulitis of right lower limb (principal); U07.1 COVID-19; Z68.42 Body mass index [BMI] 45.0-49.9, adult; I10 Essential (primary) hypertension; E66.9 Obesity, unspecified; J44.9 Chronic obstructive pulmonary disease, unspecified; K59.09 Other constipation; Z88.1 Allergy status to other antibiotic agents; K21.9 Gastro-esophageal reflux disease without esophagitis; M54.9 Dorsalgia, unspecified; G43.909 Migraine, unspecified, not intractable, without status migrainosus; F32.A Depression, unspecified; Z96.619 Presence of unspecified artificial shoulder joint; F20.9 Schizophrenia, unspecified; D64.9 Anemia, unspecified; M81.0 Age-related osteoporosis without current pathological fracture; G47.00 Insomnia, unspecified; F17.210 Nicotine dependence, cigarettes, uncomplicated; D72.829 Elevated white blood cell count, unspecified; D50.9 Iron deficiency anemia, unspecified; R73.03 Prediabetes; E88.09 Other disorders of plasma-protein metabolism, not elsewhere classified; G89.4 Chronic pain syndrome; E66.01 Morbid (severe) obesity due to excess calories; F41.9 Anxiety disorder, unspecified; Z86.718 Personal history of other venous thrombosis and embolism; Z88.8 Allergy status to other drugs, medicaments and biological substances; Z79.01 Long term (current) use of anticoagulants; Z79.899 Other long term (current) drug therapy; Z79.51 Long term (current) use of inhaled steroids; Z86.711 Personal history of pulmonary embolism; Z95.1 Presence of aortocoronary bypass graft; Z95.2 Presence of prosthetic heart valve; Z98.890 Other specified postprocedural states
CPT/HCPCS: 0241U; 36415; 71045; 73590; 80053; 80202; 80305; 81003; 82248; 82607; 82728; 82746; 82947; 83540; 83550; 83605; 83735; 85025; 86140; 87040; 93971; 94640; 94760; 96365; 96375; 99284; 99285; 99223; 99232; 99233; 99238; A9270-GY; C9113; J0248; J0696; J1100; J1170; J1815-GY; J1885; J3370; J3486; J3490; J7030; J7050; J7620-GY; J8540